=== PATIENT | female | born 1995 | race Two or more races ===

== ENCOUNTER 2025-04-23 18:59 | Emergency (ER) | payer OTHER ==
[~2025-04-23] VITALS: Ht 160 cm; Wt 71.2 kg
[2025-04-23 22:05] LABS: BASO % 0.7 % (0.1-1.2); EOS # 0.61 (0.04-0.54); EOS % 4.6 % (0.7-7.0); HEMOGLOBIN 13.6 g/dL (11.2-15.7); LYMPH # 1.94 (1.18-3.74); LYMPH % 14.6 % (19.3-53.1); MEAN CORPUSCULAR HEMOGLOBIN 28.9 pg (25.6-32.2); MONO # 0.91 (0.24-0.82); MONO % 6.8 % (4.7-12.5); PLATELET COUNT 356 K/uL (163-369); RED BLOOD COUNT 4.71 M/uL (3.93-5.22); RED CELL DISTRIBUTION WIDTH 12.7 % (11.6-14.4)
[2025-04-23 22:23] LABS: ALBUMIN 4.4 gm/dL (3.4-5.0); BILIRUBIN TOTAL 0.91 mg/dL (0.3-1.2); CALCIUM 9.3 mg/dL (8.5-10.1); CREATININE SERUM 0.79 mg/dL (0.55-1.02); GFR 87.3; GLOBULINA 4.2 G/DL (2.4-3.5); POTASSIUM 3.67 mEq/L (3.5-5.1); TOTAL PROTEIN 8.6 gm/dL (6.4-8.2)
[2025-04-23 23:02] LABS: PH,URINE 5.5 (5.0-8.0); URINE APPEARANCE Clear; URINE BILIRRUBIN Negative (NEGATIVE); URINE BLOOD Moderate; URINE COLOR Yellow; URINE GLUCOSE Negative (NEGATIVE); URINE KETONE Negative (NEGATIVE); URINE LEUKOCYTE Small; URINE NITRATE Negative; URINE PROTEIN Negative (NEGATIVE)
[2025-04-23 23:06] LABS: URINE BACTERIA 2211.6 uL (0.0-1933); URINE EPITHELIAL CELLS 38.7 uL (0.0-38.8); URINE RBC 3.3 uL (0.0-20.8); URINE WBC 40.2 uL (0.0-23.2)
[2025-04-23 23:21] LABS: URINE CAST 0.14 uL (0.0-1.40)
[2025-04-23] MEDS ORDERED: CEFTRIAXONE SODIUM 1,000 MG VIAL IM STA (23:27)
[2025-04-23] MEDS ORDERED: KETOROLAC TROMETHAMINE 30 MG VIAL IM STA (23:27)
[2025-04-23] MEDS ORDERED: LIDOCAINE HCL 1% 10ML VIAL ONE (23:31)
[2025-04-23] MEDS ORDERED: KETOROLAC TROMETHAMINE 30 MG VIAL ONE (23:31)
[2025-04-23] MEDS ORDERED: CEFTRIAXONE SODIUM 1,000 MG VIAL ONE (23:31)
== END 2025-04-23 23:41 | disposition home or self-care (01) ==
LOC: ER 19:11
PROVIDERS: General Practice
DX: N39.0 Urinary tract infection, site not specified (principal); R31.9 Hematuria, unspecified